=== PATIENT | female | born 1935 | race Caucasian/White ===

== ENCOUNTER 2017-08-18 13:51 | Emergency (ER) | payer MEDICARE, MEDICAID | END 2017-08-18 14:30 | disposition home or self-care (01) | LOC: ERS 13:51 | DX: K64.8 Other hemorrhoids (principal); E78.5 Hyperlipidemia, unspecified; I25.2 Old myocardial infarction; I10 Essential (primary) hypertension; Z79.899 Other long term (current) drug therapy; Z79.82 Long term (current) use of aspirin | CPT/HCPCS: 99282 ==

== ENCOUNTER 2017-10-09 13:33 | Emergency (ER) | payer MEDICARE, MEDICAID ==
[2017-10-09] MEDS ORDERED: Acetaminophen 500 MG TAB ONE (14:26)
--- NOTE | 2017-10-09 16:02 | RAD ---
RIGHT HUMERUS TWO VIEWS: History: Fall. Comparison: None. FINDINGS: There is a fracture of the right humeral neck with one-half shaft width anterior displacement. Fractu re extends into the greater tuberosity. IMPRESSION: Fracture of the right humeral neck with anterior displacement greater than 1 cm. Fracture extends int o the greater tuberosity. POS: [facility]
== END 2017-10-09 14:41 | disposition home or self-care (01) ==
LOC: SCSER 13:33
DX: S42.301A Unspecified fracture of shaft of humerus, right arm, initial encounter for closed fracture (principal); E78.5 Hyperlipidemia, unspecified; I25.2 Old myocardial infarction; I10 Essential (primary) hypertension; W19.XXXA Unspecified fall, initial encounter; Y93.01 Activity, walking, marching and hiking

== ENCOUNTER 2017-11-09 14:30 | Observation (INO) | payer MEDICARE, MEDICAID ==
[2017-11-09 15:48] LABS: #Eosinphils 0.1 thou/uL (0.0-0.7); #Lymphocytes 1.1 thou/uL (1.20-3.40); #Monocytes 0.5 thou/uL (0.11-0.59); #Neutrophils 3.6 thou/uL (1.40-6.50); %Basophils 0.4 % (0.0-1.0); %Eosinophils 1.9 % (0.0-10.0); %Lymphocytes 19.8 % (21.0-51.0); %Monocytes 9.6 % (0.0-10.0); %Neutrophils 68.2 % (42.0-75.0); Hemoglobin 8.5 g/dL (12.0-16.0); Mean Corpuscular Hemoglobin 27.8 pg (27.0-31.0); Mean Corpuscular Volume 87.1 fl (81.0-99.0); Mean Platelet Volume 6.8 fL (7.4-10.4); Platelet Count 232 thou/uL (130-400); RBC Distribution Width 17.4 % (11.5-14.5); Red Blood Cell (RBC) Count 3.05 mill/uL (4.20-5.40); White Blood Cell (WBC) Count 5.3 thou/uL (4.8-10.8)
[2017-11-09 16:01] LABS: ALT (SGPT) 10 U/L (8-55); AST (SGOT) 23 U/L (5-34); Alkaline Phosphatase 117 U/L (40-150); Anion Gap 13 mmol/L (10-20); BUN (Urea Nitrogen) 37 mg/dL (9.8-20.1); Bilirubin, Total 0.5 mg/dL (0.2-1.2); CK (CPK) 87 U/L (29-168); Calc. Creatinine Clearance 0 mL/min (70-130); Calcium 8.2 mg/dL (7.8-10.44); Carbon Dioxide 23 mmol/L (23-31); Chloride 103 mmol/L (98-107); Estimated GFR-MDRD 38; Globulin 3.5 g/dL (2.4-3.5); Glucose 114 mg/dL (83-110); Magnesium 2.2 mg/dL (1.6-2.6); Potassium 3.8 mmol/L (3.5-5.1); Protein, Total 6.5 g/dL (6.0-8.3); Sodium 135 mmol/L (136-145)
[2017-11-09 16:05] LABS: CKMB 1.2 ng/mL (0-6.6); Troponin I 0.011 ng/mL (< 0.028)
--- NOTE | 2017-11-09 16:24 | RAD ---
PORTABLE CHEST ONE VIEW: Date: 11-09-17 Time: 3:49 p.m. History: Pre-operative evaluation. FINDINGS: Comparison is made with exam of 10-19-15. The heart is enlarged. Left sided pacemaker device remains in place. The aorta is tortuous. The lungs are expanded without confluent areas of consolidation, pneumothoraces, madai pulmonary edema or pleu ral effusions. There is fracture of the right proximal humerus. IMPRESSION: 1. Cardiomegaly. 2. Right humeral fracture. POS: [facility]
[2017-11-09 16:33] LABS: Bilirubin Negative (Negative); Blood, Urine Negative (Negative); Clarity CLOUDY (Clear); Glucose, Urine (Dipstick) Negative (Negative); Leukocyte Trace (Negative); Nitrite Negative (Negative); Protein, Urine (Dipstick) Negative (Neg-Trace); Specific Gravity, Urine 1.015 (1.002-1.036); pH, Urine 5.5 (5.0-9.0)
[2017-11-09 16:35] LABS: Bacteria/HPF 4+ HPF (None Seen); Squamous Epithelial 0-3 HPF (0-3); WBC/HPF 0-3 HPF (0-3)
[2017-11-09 16:37] LABS: Pathc Cast-AUWi Flag 3.48 (0-2.49); RBC/HPF 0-3 HPF (0-3); Yeast-AUWi Flag 629.2 (0-25.0)
[2017-11-09 16:45] LABS: Crystals/HPF None Seen HPF (Negative); Other Casts/LPF None Seen LPF (0-3 Hyaline); Oval Fat Bodies/HPF None Seen HPF (None Seen); Renal Epithelial None Seen HPF (0-3); Transitional Epithelial NONE SEEN HPF (0-3); Trichomonas/HPF None Seen HPF (None Seen); Yeast-All Forms 1+ HPF (None Seen)
[2017-11-09] MEDS ORDERED: cefTRIAXone\\ROCEPHIN 2 GM VIAL ONE (18:19)
--- NOTE | 2017-11-09 19:28 | PDOC.FPRHP ---
Addendum entered and electronically signed by José Miguel Bahena MD 11/09/17 21:33: I, José Miguel Bahena MD, have personally evaluated this patient and agree with the findings/plan as outlined below by the tax intern resident with the following additions/exceptions: 82 yo WF presents after being found to be severely hypotensive in her cardiologists office. Patient was there undergoing cardiac clearance prior to undergoing repair of a R humeral fracture, which occurred about a month ago in a fall. SBPs were noted to be in the 50's in Dr. Ya's office, so patient was sent to the ER. The patient was bolused a liter of fluids after arrival; however, when they tried to get her up and move her she became weak and was unable to stand. Only other complaint is some mild dysuria over the past few days. Denies any f/c, chest pain, SOB, n/v/d/, vision changes, lightheadedness, increased lower extremity swelling, or LOC. Family at bedside does report her being weak recently. VS: BP: 11/61 HR: 76 T: 98.5 SpO2: 97% RA RR: 21 Gen: thin, frail appearing elderly female, NAD, AAOx3 CV: irr irregular rhythm, no m/g/r Lungs: CTAB Abd: +BS, NT/ND Ext: no c/c/e, adequately perfused A/P: 82 yo F w/: 1) Hypotension, likely iatrogenic 2/2 excess anti-antihypertensive therapy v. dehydration(hyaline casts on UA): placing in observation to telemetry for monitoring overnight. BPs responding to fluids. BP medication adjustment. 2) Possible UTI: Received Rocephin in ER, transition to orals on discharge. 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 Pt recently broke her R. humerus a month ago. She was going in to Dr. Ya office today to get cleared for surgery. At the appointment she was found to have BP in the 50's. Was sent to ER where she was hypotensive. When they tried to get her up and move her she became weak and was unable to stand. Only other complaint is that patient has had some burning when urinating. Denies any chest pain, SOB. Denies any n/v/d/c. Denies any vision changes or lightheadness. Denies any LOC. Family at bedside does report her being weak. Denies any swelling in hands or legs. ED Course: Given 1 fluid bolus in ER and by end of discussion with her BP had come up to 110's/50's - Allergies/Adverse Reactions Allergies Allergy/AdvReac Type Severity Reaction Status Date / Time Penicillins Allergy Mild Rash Verified 11/09/17 20:14 - Home Medications Medication Instructions Recorded Confirmed Type Aspirin [Ecotrin Low Strength] 81 mg PO DAILY 02/15/14 11/09/17 History Atorvastatin Calcium [Lipitor] 80 mg PO HS 02/16/14 11/09/17 History Amlodipine Besylate [amLODIPine 10 mg PO DAILY 03/14/15 11/09/17 History Besylate] Carvedilol [Coreg] 20 mg PO BID 03/14/15 11/10/17 History Ezetimibe [Zetia] 10 mg PO HS 03/14/15 11/09/17 History Lisinopril/Hydrochlorothiazide 1 tablet PO DAILY 03/14/15 11/09/17 History [Lisinopril-Hctz 20-25 mg Tab] - History PMHx: HTN, HLD, chronic A.fib, DMII, Sick sinus syndrome s/p pacemaker PSHx: hysterectomy, bilateral hip surgeries FHx: Noncontributory Social: Smoked in way way past unknown length of time, no alcohol use, no illicit drug use - Review of Systems General: denies: fever/chills, weight/appetite/sleep changes, night sweats Eyes: denies: eye pain, vision changes ENT: denies: nasal congestion, rhinorrhea Respiratory: denies: cough, congestion, shortness of breath, exercise intolerance Cardiovascular: denies: chest pain, palpitation, edema, paroxysmal nocturnal dyspnea, orthopnea Gastrointestinal: denies: nausea, vomiting, diarrhea, constipation, abdominal pain Genitourinary: reports: dysuria, other (burning pain) Skin: denies: rashes, lesions, itching Musculoskeletal: reports: pain (In R. arm). denies: tenderness, stiffness, swelling Neurological: reports: weakness. denies: numbness, syncope, seizure Psychological: denies: anxiety, depression - Vital signs BP: [115/53] HR: [86] RR: [18] Tmax: [98.7] Pox: [100]% on RA WT: 48 kg - Physical Exam Constitutional: NAD, awake, alert and oriented, well developed HEENT: normocephalic and atraumatic, PERRLA, grossly normal vision, normal nasal mucosa, MMM Neck: supple, no LAD, no thyromegaly Chest: no-tender to palpation, no lesions Heart: RRR, normal S1/S2, no murmurs/rubs/gallops, pulses present Lungs: CTAB, no respiratory distress, no rales/rhonchi, no wheezing Abdomen: soft, bowel sounds present, no hernias -Abdomen: mildly distended Musculoskeletal: normal structure, ROM grossly normal Neurological: no focal deficit, normal sensation Skin: no rash/lesions, good turgor, capillary refill <2 seconds Heme/Lymphatic: no unusual bruising or bleeding, no purpura, no petechia Psychiatric: normal mood and affect, good judgment and insight FMR H&P: Results - Labs Result Diagrams: 11/10/17 15:11 11/10/17 05:29 Lab results: WBC 5.3 thou/uL (4.8-10.8) 11/09/17 15:10 Hgb 8.5 g/dL (12.0-16.0) L 11/09/17 15:10 Hct 26.6 % (36.0-47.0) L 11/09/17 15:10 MCV 87.1 fl (81.0-99.0) 11/09/17 15:10 Plt Count 232 thou/uL (130-400) 11/09/17 15:10 Neutrophils % 68.2 % (42.0-75.0) 11/09/17 15:10 Sodium 135 mmol/L (136-145) L 11/09/17 15:10 Potassium 3.8 mmol/L (3.5-5.1) 11/09/17 15:10 Chloride 103 mmol/L (98-107) 11/09/17 15:10 Carbon Dioxide 23 mmol/L (23-31) 11/09/17 15:10 BUN 37 mg/dL (9.8-20.1) H 11/09/17 15:10 Creatinine 1.34 mg/dL (0.6-1.1) H 11/09/17 15:10 Glucose 114 mg/dL (83-110) H 11/09/17 15:10 Lactic Acid 2.2 mmol/L (0.5-2.2) 11/09/17 15:10 Calcium 8.2 mg/dL (7.8-10.44) 11/09/17 15:10 Total Bilirubin 0.5 mg/dL (0.2-1.2) 11/09/17 15:10 AST 23 U/L (5-34) 11/09/17 15:10 ALT 10 U/L (8-55) 11/09/17 15:10 Alkaline Phosphatase 117 U/L (40-150) 11/09/17 15:10 Creatine Kinase 87 U/L (29-168) 11/09/17 15:10 CK-MB (CK-2) 1.2 ng/mL (0-6.6) 11/09/17 15:10 B-Natriuretic Peptide 113.2 pg/mL (0-100) H 11/09/17 15:10 Serum Total Protein 6.5 g/dL (6.0-8.3) 11/09/17 15:10 Albumin 3.0 g/dL (3.4-4.8) L 11/09/17 15:10 Urine Ketones Negative mg/dL (Negative) 11/09/17 16:27 Urine Blood Negative (Negative) 11/09/17 16:27 Urine Nitrite Negative (Negative) 11/09/17 16:27 Ur Leukocyte Esterase Trace (Negative) H 11/09/17 16:27 Urine RBC 0-3 HPF (0-3) 11/09/17 16:27 Urine WBC 0-3 HPF (0-3) 11/09/17 16:27 Ur Squamous Epith Cells 0-3 HPF (0-3) 11/09/17 16:27 Urine Bacteria 4+ HPF (None Seen) H 11/09/17 16:27 - EKG Interpretation EKG: a. fib, paced - Radiology Interpretation Chest x-ray Status: image reviewed by me (negative), report reviewed by me FMR H&P: A/P - Problem List (1) Hypotension due to medication Current Visit: Yes Status: Acute (2) Mild dehydration Current Visit: Yes Status: Acute Code(s): E86.0 - DEHYDRATION (3) UTI (urinary tract infection) Current Visit: Yes Status: Acute (4) HTN (hypertension) Current Visit: Yes Status: Acute Code(s): I10 - ESSENTIAL (PRIMARY) HYPERTENSION Qualifiers: Hypertension type: essential hypertension Qualified Code(s): I10 - Essential (primary) hypertension (5) HLD (hyperlipidemia) Current Visit: Yes Status: Acute Code(s): E78.5 - HYPERLIPIDEMIA, UNSPECIFIED Qualifiers: Hyperlipidemia type: other hyperlipidemia Qualified Code(s): E78.4 - Other hyperlipidemia (6) A-fib Current Visit: Yes Status: Acute Code(s): I48.91 - UNSPECIFIED ATRIAL FIBRILLATION Qualifiers: Atrial fibrillation type: unspecified Qualified Code(s): I48.91 - Unspecified atrial fibrillation (7) Diabetes Current Visit: Yes Status: Acute Code(s): E11.9 - TYPE 2 DIABETES MELLITUS WITHOUT COMPLICATIONS Qualifiers: Diabetes mellitus type: type 2 Diabetes mellitus custodial insulin use: without manager intermediate use Diabetes mellitus complication status: with unspecified complications Qualified Code(s): E11.8 - Type 2 diabetes mellitus with unspecified complications (8) Vitamin B12 deficiency (dietary) anemia Current Visit: No Status: Acute Code(s): D51.8 - OTHER VITAMIN B12 DEFICIENCY ANEMIAS (9) Right humeral fracture Current Visit: Yes Status: Acute Code(s): S42.301A - UNSP FRACTURE OF SHAFT OF HUMERUS, RIGHT ARM, INIT - Plan Symptomatic Hypotension 2/2 iatrogenic vs mild dehdration -BP responded well to 1 L bolus in ER. Will give another Bolus. Will continue fluids at 100 mls/hr -Holding all hypertensive medications at this time. Will see where blood pressure goes to and restart meds as needed -Possibly related to UTI as well. See plan below UTI -UA shows 4+ bacteria, 1+ yeast and Trace LE. Complaining of burning pain when urinating -urine cx pending -Rocephin for abx coverage. Diflucan given for yeast infection -Await sensitivities and adjust medications as needed HTN -Holding all hypertensive medications due to problem above HLD -continue home meds Chronic A.fib w/ pacemaker -Tele obs monitoring -continue home meds DMII -Diet controlled, not on any meds at this time -Accuchecks BID. Mild SSI R. Humerus fx -Recently being worked up outpatient. Plan for surgery once cleared Macrocytic Anemia -Hgb 8.5 a little lower than baseline from previous visits. -Follow with Daily CBC. continue home meds - FMR H&P: Upper Level - Plan Date/Time: 11/09/171927 I, [], have evaluated this patient and agree with findings/plan as outlined by tax intern resident. Pertinent changes/additions are listed here. Attending Addendum - Attending Addendum Date/Time: 11/10/17 [id number] I personally evaluated the patient and discussed the management with Dr. Moran. I agree with the History, Examination, Assessment and Plan documented above with any addition or exceptions noted below.
[2017-11-09 19:45] LABS: Lactic Acid 0.8 mmol/L (0.5-2.2)
[2017-11-09] MEDS ORDERED: Ondansetron ODT 4 MG TAB SL PRN (19:46)
[2017-11-09] MEDS ORDERED: Sodium Chloride 0.9% 1,000 ML IV SCH (19:46)
[2017-11-09] MEDS ORDERED: Ondansetron HCl/PF 4 MG/2 ML Vial IVP PRN ×2 (19:46→19:54)
[2017-11-09] MEDS ORDERED: Acetaminophen 650 MG Suppository PR PRN (19:54)
[2017-11-09] MEDS ORDERED: Ondansetron ODT 4 MG TAB PO PRN (19:54)
[2017-11-09] MEDS ORDERED: Acetaminophen 325 MG TAB PO PRN (19:54)
[2017-11-09] MEDS ORDERED: cefTRIAXone\\ROCEPHIN 1 GM in Sodium Chloride 0.9% 100 ML IVPB SCH (19:54)
[2017-11-09] MEDS ORDERED: Calcium Carbonate 500 MG ChewTAB PO PRN (19:54)
[2017-11-09] MEDS ORDERED: cefTRIAXone\\ROCEPHIN 1 GM, Syringe 0.4 ML in Sterile Water 9.6 ML SLOW IVP SCH (21:00)
[2017-11-09] MEDS ORDERED: Dextrose 5% in Water 1,000 ML IV PRN (21:02)
[2017-11-09] MEDS ORDERED: Dextrose 50% Abboject 50 ML SYRINGE SLOW IVP PRN (21:02)
[2017-11-09] MEDS ORDERED: HumaLOG 300 UNITS/3 ML VIAL SC PRN (21:02)
[2017-11-09] MEDS: Atorvastatin Calcium 40 MG TAB PO SCH (22:15)
[2017-11-09] MEDS: Sodium Chloride 0.9% 1,000 ML IV SCH (22:15)
[2017-11-10 05:57] LABS: #Eosinphils 0.1 thou/uL (0.0-0.7); #Lymphocytes 1.2 thou/uL (1.20-3.40); #Monocytes 0.5 thou/uL (0.11-0.59); #Neutrophils 4.3 thou/uL (1.40-6.50); %Basophils 0.1 % (0.0-1.0); %Eosinophils 2.1 % (0.0-10.0); %Lymphocytes 19.9 % (21.0-51.0); %Monocytes 7.9 % (0.0-10.0); Hemoglobin 7.6 g/dL (12.0-16.0); Mean Corpuscular HGB CONC 32.1 g/dL (32.0-36.0); Mean Corpuscular Hemoglobin 27.9 pg (27.0-31.0); Mean Corpuscular Volume 86.8 fl (81.0-99.0); Mean Platelet Volume 6.6 fL (7.4-10.4); Platelet Count 199 thou/uL (130-400); RBC Distribution Width 17.4 % (11.5-14.5); Red Blood Cell (RBC) Count 2.72 mill/uL (4.20-5.40); White Blood Cell (WBC) Count 6.2 thou/uL (4.8-10.8)
[2017-11-10] MEDS: Sodium Chloride 0.9% 1,000 ML IV SCH (06:09)
[2017-11-10 06:10] LABS: Anion Gap 7 mmol/L (10-20); BUN (Urea Nitrogen) 31 mg/dL (9.8-20.1); Calc. Creatinine Clearance 34 mL/min (70-130); Calcium 7.8 mg/dL (7.8-10.44); Carbon Dioxide 23 mmol/L (23-31); Chloride 109 mmol/L (98-107); Estimated GFR-MDRD 57; Glucose 89 mg/dL (83-110); Potassium 3.1 mmol/L (3.5-5.1); Sodium 136 mmol/L (136-145)
[2017-11-10] MEDS ORDERED: Potassium Chloride 20 MEQ TAB PO SCH (06:15)
--- NOTE | 2017-11-10 08:42 | PDOC.FM ---
- Subjective Subjective: Patient reports that she is feeling much better. She is still feeling weak, but no lightheadedness or dizziness. She reports some dysuria, but states that it is improved from yesterday. She denies any abdominal pain, N/V. She denies melena, hematochezia. She does not remember ever having a colonoscopy, but she is unsure. She said she could have had one a long time ago and just not remembered. - Objective MAR Reviewed: Yes Vital Signs & Weight: Vital Signs (12 hours) Temp Pulse Resp BP Pulse Ox 11/10/17 08:00 98.6 F 84 18 132/62 97 11/10/17 07:51 98.6 F 84 16 132/62 97 Weight Weight 47.718 kg I&O: 11/09/17 11/10/17 11/11/17 06:59 06:59 06:59 Intake Total 1260 Balance 1260 Result Diagrams: 11/10/17 05:29 11/10/17 05:29 <Gregoria Miller - Last Filed: 11/10/17 08:40> - Objective Vital Signs & Weight: Vital Signs (12 hours) Temp Pulse Pulse Resp BP BP Pulse Ox 11/10/17 08:30 94 139/76 11/10/17 08:00 98.6 F 84 18 132/62 97 11/10/17 07:51 98.6 F 84 16 132/62 97 Weight Weight 47.718 kg I&O: 11/09/17 11/10/17 11/11/17 06:59 06:59 06:59 Intake Total 1260 Balance 1260 Result Diagrams: 11/10/17 05:29 11/10/17 05:29 <Carol Venegas - Last Filed: 11/10/17 10:50> Phys Exam - Physical Examination Constitutional: NAD frail appearing HEENT: moist MMs Respiratory: no wheezing, no rales, no rhonchi, clear to auscultation bilateral irregularly irregular, 3/6 systolic murmur Gastrointestinal: soft, no distention, positive bowel sounds mildly tender in suprapubic region Musculoskeletal: no edema, pulses present R arm in sling Neurological: non-focal, moves all 4 limbs Psychiatric: normal affect, A&O x 3 Skin: normal turgor, cap refill <2 seconds <Gregoria Miller - Last Filed: 11/10/17 08:40> Dx/Plan (1) Hypotension due to medication Status: Acute (2) Mild dehydration Code(s): E86.0 - DEHYDRATION Status: Acute (3) UTI (urinary tract infection) Status: Acute (4) Right humeral fracture Code(s): S42.301A - UNSP FRACTURE OF SHAFT OF HUMERUS, RIGHT ARM, INIT Status : Acute (5) Normocytic anemia Code(s): D64.9 - ANEMIA, UNSPECIFIED Status: Acute (6) A-fib Code(s): I48.91 - UNSPECIFIED ATRIAL FIBRILLATION Status: Acute QualifierTitle: Atrial fibrillation type: unspecified Qualified Code(s): I48.91 - Unspecified atrial fibrillation (7) Diabetes Code(s): E11.9 - TYPE 2 DIABETES MELLITUS WITHOUT COMPLICATIONS Status: Acute QualifierTitle: Diabetes mellitus type: type 2 Diabetes mellitus detention insulin use: without exterminator termite use Diabetes mellitus complication status : with unspecified complications Qualified Code(s): E11.8 - Type 2 diabetes mellitus with unspecified complications (8) HLD (hyperlipidemia) Code(s): E78.5 - HYPERLIPIDEMIA, UNSPECIFIED Status: Acute QualifierTitle: Hyperlipidemia type: other hyperlipidemia Qualified Code( s): E78.4 - Other hyperlipidemia (9) HTN (hypertension) Code(s): I10 - ESSENTIAL (PRIMARY) HYPERTENSION Status: Acute QualifierTitle: Hypertension type: essential hypertension Qualified Code( s): I10 - Essential (primary) hypertension - Plan Plan: Symptomatic Hypotension 2/2 iatrogenic vs mild dehdration The patient had SBP reported in the 50's in a clinic on 11/09 and then on presentation in the ED had BP of 63/36. Her BP responded to 2L NS boluses and has been around 110s/60s since then. -Will continue fluids at 100 mls/hr -Holding all hypertensive medications at this time. Will see where blood pressure goes to and restart meds as needed -Possibly related to UTI as well. See plan below -Pt also anemic initially to 8.5 and is 7.6 today. Her baseline is around 10. No source of bleeding found, but has a h/o JODY. Will check FOBT and iron studies. -Trend H/H and transfuse if < 7 UTI UA shows 4+ bacteria, 1+ yeast and Trace LE. Complaining of burning pain when urinating with some suprapubic tenderness on exam. -urine cx pending -Rocephin day 2, will transition to PO once cultures return -Diflucan given for yeast infection -Await sensitivities and adjust medications as needed Normocytic Anemia -Hgb 8.5 initially and trended down to 7.6 this AM. Baseline around 10. Has h/o JODY and reports that she has been on iron in the past, but isn't currently. She has had to have a blood transfusion once before after a hip fracture. She is unsure if she has ever had a colonoscopy. -Follow with Daily CBC -Check iron studies -FOBT HTN Patient on Carvedilol, Lisinopril-HCTZ, and Amlodipine at home. -Holding all hypertensive medications due to problem above HLD -continue home meds Chronic A.fib w/ pacemaker -Monitor on tele -Continue aspirin DMII -Diet controlled, not on any meds at this time -Accuchecks BID. Mild SSI R. Humerus fx Recently being worked up outpatient. Plan for surgery once cleared by cardiology -Continue sling -f/u with cardiology for clearance once d/c'd <Gregoria Miller - Last Filed: 11/10/17 08:40> Attending Addendum - Attending Addendum Date/Time: 11/10/17 1049 I personally evaluated the patient and discussed the management with Dr. Miller. I agree with the History, Examination, Assessment and Plan documented above with any addition or exceptions noted below. The patient's hypotension has resolved. BP meds are being held. On antibiotics for UTI. WAiting on culture. <Carol Venegas - Last Filed: 11/10/17 10:50>
[2017-11-10] MEDS: Enoxaparin Sodium 30 MG/0.3 ML SYRINGE SC SCH (08:59)
[2017-11-10] MEDS ORDERED: Fluconazole 100 MG TAB PO SCH (09:00)
[2017-11-10] MEDS ORDERED: Enoxaparin Sodium 40 MG/0.4 ML SYRINGE SC SCH (09:00)
[2017-11-10] MEDS: Cyanocobalamin (Vitamin B-12) 1,000 MCG TAB PO SCH (09:00)
[2017-11-10] MEDS: Aspirin 81 mg Enteric Coated Tablet PO SCH (09:01)
[2017-11-10] MEDS: Ezetimibe 10 MG TAB PO SCH (09:01)
[2017-11-10 15:25] LABS: Hemoglobin 8.3 g/dL (12.0-16.0)
[2017-11-10] MEDS ORDERED: cefTRIAXone\\ROCEPHIN 1 GM, Syringe 0.4 ML in Sterile Water 9.6 ML SLOW IVP SCH (19:00)
[2017-11-10] MEDS: Atorvastatin Calcium 40 MG TAB PO SCH (20:41)
[2017-11-11 07:23] LABS: #Eosinphils 0.2 thou/uL (0.0-0.7); #Lymphocytes 1.5 thou/uL (1.20-3.40); #Monocytes 0.5 thou/uL (0.11-0.59); #Neutrophils 2.5 thou/uL (1.40-6.50); %Basophils 0.8 % (0.0-1.0); %Eosinophils 4.9 % (0.0-10.0); %Lymphocytes 32.5 % (21.0-51.0); %Monocytes 9.4 % (0.0-10.0); %Neutrophils 52.4 % (42.0-75.0); Hemoglobin 8.3 g/dL (12.0-16.0); Mean Corpuscular HGB CONC 31.2 g/dL (32.0-36.0); Mean Corpuscular Hemoglobin 27.4 pg (27.0-31.0); Mean Platelet Volume 6.5 fL (7.4-10.4); Platelet Count 222 thou/uL (130-400); RBC Distribution Width 17.2 % (11.5-14.5); Red Blood Cell (RBC) Count 3.03 mill/uL (4.20-5.40); White Blood Cell (WBC) Count 4.7 thou/uL (4.8-10.8)
[2017-11-11 07:24] VITALS: BMI 15.7
[2017-11-11 07:44] LABS: Anion Gap 11 mmol/L (10-20); BUN (Urea Nitrogen) 19 mg/dL (9.8-20.1); Calc. Creatinine Clearance 38 mL/min (70-130); Calcium 8.5 mg/dL (7.8-10.44); Carbon Dioxide 22 mmol/L (23-31); Chloride 107 mmol/L (98-107); Estimated GFR-MDRD 68; Glucose 76 mg/dL (83-110); Potassium 3.7 mmol/L (3.5-5.1); Sodium 136 mmol/L (136-145)
[2017-11-11] MEDS: Ezetimibe 10 MG TAB PO SCH (08:50)
[2017-11-11] MEDS: Enoxaparin Sodium 30 MG/0.3 ML SYRINGE SC SCH (08:50)
[2017-11-11] MEDS: Aspirin 81 mg Enteric Coated Tablet PO SCH (08:50)
[2017-11-11] MEDS: Cyanocobalamin (Vitamin B-12) 1,000 MCG TAB PO SCH (08:50)
--- NOTE | 2017-11-11 09:00 | PDOC.FM ---
- Subjective Subjective: Patient doing well this AM. She says she got up to walk with the walking program yesterday and had no lightheadedness or dizziness. She denies any CP, SOB. She has some mild dysuria. - Objective MAR Reviewed: Yes Vital Signs & Weight: Vital Signs (12 hours) Temp Pulse Resp BP Pulse Ox 11/11/17 08:12 98.1 F 77 21 H 155/73 H 92 L 11/11/17 04:41 97.9 F 89 24 H 131/72 97 11/11/17 00:49 98.8 F 90 15 148/64 H 93 L Weight Admit Weight 47.718 kg Weight 45.813 kg I&O: 11/10/17 11/11/17 11/12/17 06:59 06:59 06:59 Intake Total 1410 1280 Balance 1410 1280 Result Diagrams: 11/11/17 07:01 11/11/17 07:01 <Gregoria Miller - Last Filed: 11/11/17 08:57> - Objective Vital Signs & Weight: Vital Signs (12 hours) Temp Pulse Resp BP Pulse Ox 11/11/17 12:00 97.8 F 79 18 145/70 H 94 L 11/11/17 08:12 98.1 F 77 21 H 155/73 H 92 L 11/11/17 08:00 98.1 F 77 21 H Weight Admit Weight 47.718 kg Weight 45.813 kg I&O: 11/10/17 11/11/17 11/12/17 06:59 06:59 06:59 Intake Total 1410 1280 400 Balance 1410 1280 400 Result Diagrams: 11/11/17 07:01 11/11/17 07:01 <Carol Venegas - Last Filed: 11/11/17 17:12> Phys Exam - Physical Examination Constitutional: NAD HEENT: moist MMs Respiratory: no wheezing, no rales, no rhonchi, clear to auscultation bilateral Cardiovascular: RRR, no rub 3/6 systolic murmur Gastrointestinal: soft, no distention, positive bowel sounds mildly tender in suprapubic region Musculoskeletal: no edema, pulses present Neurological: non-focal, moves all 4 limbs Psychiatric: normal affect Skin: normal turgor, cap refill <2 seconds <Gregoria Miller - Last Filed: 11/11/17 08:57> Dx/Plan (1) Hypotension due to medication Status: Acute (2) Mild dehydration Code(s): E86.0 - DEHYDRATION Status: Acute (3) UTI (urinary tract infection) Status: Acute (4) Right humeral fracture Code(s): S42.301A - UNSP FRACTURE OF SHAFT OF HUMERUS, RIGHT ARM, INIT Status : Acute (5) Normocytic anemia Code(s): D64.9 - ANEMIA, UNSPECIFIED Status: Acute (6) A-fib Code(s): I48.91 - UNSPECIFIED ATRIAL FIBRILLATION Status: Acute QualifierTitle: Atrial fibrillation type: unspecified Qualified Code(s): I48.91 - Unspecified atrial fibrillation (7) Diabetes Code(s): E11.9 - TYPE 2 DIABETES MELLITUS WITHOUT COMPLICATIONS Status: Acute QualifierTitle: Diabetes mellitus type: type 2 Diabetes mellitus financial consultant insulin use: without correction use Diabetes mellitus complication status : with unspecified complications Qualified Code(s): E11.8 - Type 2 diabetes mellitus with unspecified complications (8) HLD (hyperlipidemia) Code(s): E78.5 - HYPERLIPIDEMIA, UNSPECIFIED Status: Acute QualifierTitle: Hyperlipidemia type: other hyperlipidemia Qualified Code( s): E78.4 - Other hyperlipidemia (9) HTN (hypertension) Code(s): I10 - ESSENTIAL (PRIMARY) HYPERTENSION Status: Acute QualifierTitle: Hypertension type: essential hypertension Qualified Code( s): I10 - Essential (primary) hypertension - Plan Plan: Symptomatic Hypotension 2/2 iatrogenic vs mild dehdration The patient had SBP reported in the 50's in a clinic on 11/09 and then on presentation in the ED had BP of 63/36. Her BP responded to 2L NS boluses. This is possibly related to UTI. Her BP has been 131/72-174/79 in past 24 horus -d/c fluids at this time -Holding all hypertensive medications at this time. -Pt also anemic at 8.3 today. Her baseline is around 10. No source of bleeding found, but has a h/o JODY. Will check FOBT -Trend H/H and transfuse if < 7 UTI UA shows 4+ bacteria, 1+ yeast and Trace LE. Complaining of burning pain when urinating with some suprapubic tenderness on exam. UCx no growth @ 24 hours -urine cx final result pending -Rocephin day 3, will transition to PO once cultures return -Diflucan x1 given for yeast infection Normocytic Anemia -Hgb 8.5 initially. Baseline around 10. Has h/o JODY and reports that she has been on iron in the past, but isn't currently. She has had to have a blood transfusion once before after a hip fracture. She is unsure if she has ever had a colonoscopy. -Follow with Daily CBC -FOBT still pending HTN Patient on Carvedilol, Lisinopril-HCTZ, and Amlodipine at home. -Holding all hypertensive medications due to problem above HLD -continue home meds Chronic A.fib w/ pacemaker -Monitor on tele -Continue aspirin DMII -Diet controlled, not on any meds at this time -Accuchecks BID. Mild SSI R. Humerus fx Recently being worked up outpatient. Plan for surgery once cleared by cardiology -Continue sling -f/u with cardiology for clearance once d/c'd <Gregoria Miller - Last Filed: 11/11/17 08:57> Attending Addendum - Attending Addendum Date/Time: 11/11/17 1711 I personally evaluated the patient and discussed the management with Dr. Miller. I agree with the History, Examination, Assessment and Plan documented above with any addition or exceptions noted below. The patient is feeling better. Blood pressure has risen. Will restart carvedilol at 12.5 mg bid. Hold other bp meds until she f/u with PCP. Ok to discharge. <Carol Venegas - Last Filed: 11/11/17 17:12>
[2017-11-11 13:28] VITALS: BP 145/70; TEMP 97.8
--- NOTE | 2017-11-14 12:52 | DIS-2 ---
DATE OF ADMISSION: 11/09/2017 DATE OF DISCHARGE: 11/11/2017 ADMITTING ATTENDING: Anirudh Lopez M.D. DISCHARGE ATTENDING: Carol Venegas M.D. ADMITTING RESIDENT: Arden Moran M.D. DISCHARGE RESIDENT: Gregoria Miller M.D. CONSULTATIONS: None. PROCEDURES: None. PRIMARY DIAGNOSES: 1. Symptomatic hypotension. 2. Mild dehydration. 3. Urinary tract infection. 4. Normocytic anemia. SECONDARY DIAGNOSES: 1. Hypertension. 2. Hyperlipidemia. 3. Chronic atrial fibrillation with pacemaker. 4. Diabetes type 2. 5. Right humerus fracture. DISCHARGE MEDICATIONS: 1. Aspirin 81 mg p.o. daily. 2. Atorvastatin 80 mg p.o. at bedtime. 3. Carvedilol 12.5 mg p.o. b.i.d. 4. Vitamin B12 1000 mcg p.o. daily. 5. Zetia 10 mg p.o. at bedtime. 6. Macrobid 100 mg p.o. b.i.d. for 3 days. DISCONTINUED MEDICATIONS: 1. Amlodipine 10 mg p.o. daily. 2. Carvedilol 20 mg p.o. b.i.d. 3. Lisinopril/hydrochlorothiazide 20/25 mg 1 tablet p.o. daily. HISTORY OF PRESENT ILLNESS AND HOSPITAL COURSE: This is an 82-year-old female who came into the ER f nara Ya's office due to symptomatic hypotension. She had been there to get cleared for surg irena due to a right humerus fracture about a month ago. In his office, she was found to have systolic blood pressures in the 50s. Upon arrival in the ER, her blood pressure was 63/36. Patient received 2 fluid boluses and her blood pressure improved to the teens systolic. The patient's antihypertensi ve medicines were held and her blood pressure continued to improve to the 130s/70s. The patient was found to have a UA that showed 4+ bacteria, 1+ yeast and trace leukocyte esterase. She was also comp laining of some burning pain with urination and some suprapubic tenderness. She was given one dose o f Diflucan for the yeast infection and was given 3 days of Rocephin in the hospital and upon discharg e was transitioned to Macrobid as the urine culture did not grow anything. The Macrobid was continue d for 3 more days. The patient was also found to be anemic slightly below her baseline. Her baselin e is around 10. Her hemoglobin on admission was 8.5. This could be related to her humerus fracture. She does have a history of iron deficiency anemia, but was not currently on iron. The patient has had to have a blood transfusion in the past when she had her hip fracture done. She is unsure if she has ever had a colonoscopy. It was recommended for her to potentially get worked up for this by her PCP and potentially get a colonoscopy outpatient. The patient's blood pressures improved and were a t her baseline level. She was discharged home on carvedilol 12.5 mg b.i.d. as the patient does have a history of chronic atrial fibrillation. The rest of her blood pressure medicines were held at this time for her to follow up with her primary care doctor to titrate as needed. The patient should fol low up with Cardiology to get cleared for surgery for her right humerus fracture. The patient was as ymptomatic at the time of discharge. DISPOSITION: Stable. DISCHARGE INSTRUCTIONS: 1. Location: Home. 2. Diet: Heart healthy and diabetic. 3. Activity: As tolerated. 4. Follow up with Dr. Aleman within [address] Ya within 1-2 weeks.
== END 2017-11-11 15:48 | disposition home or self-care (01) ==
LOC: ERS 14:30 → 2NO 18:32
PROVIDERS: ADMIT Family Medicine; ATTEND Family Medicine
DX: I95.9 Hypotension, unspecified (principal); E86.0 Dehydration; N39.0 Urinary tract infection, site not specified; D64.9 Anemia, unspecified; I10 Essential (primary) hypertension; E78.5 Hyperlipidemia, unspecified; I48.2 Chronic atrial fibrillation; E11.9 Type 2 diabetes mellitus without complications; S42.301A Unspecified fracture of shaft of humerus, right arm, initial encounter for closed fracture; I25.10 Atherosclerotic heart disease of native coronary artery without angina pectoris; I42.9 Cardiomyopathy, unspecified; Z88.0 Allergy status to penicillin; Z95.0 Presence of cardiac pacemaker; Z98.890 Other specified postprocedural states; Z87.891 Personal history of nicotine dependence; B96.89 Other specified bacterial agents as the cause of diseases classified elsewhere
CPT/HCPCS: 51701; 71045; 80048 ×2; 80053; 82550; 82553; 82728; 82962 ×2; 83540; 83550; 83605; 83735 ×2; 83880; 84484; 85014; 85018; 85025 ×3; 87086; 93005; 96361 ×3; 96365; 96372 ×2; 96376; 97139 ×4; 99285; G0378; G8987; G8988; 36415; 36416; 81003; 81015; A4216; G8996-GN-CL; G8997-GN-CK; J0696; J1650

== ENCOUNTER 2018-02-05 00:33 | Emergency (ER) | payer MEDICARE, MEDICAID ==
[2018-02-05 00:46] LABS: Base Excess-Venous -11.8 mmol/L (0 (+/- 2.5)); Bicarbonate (HCO3v) 16.9 mmol/L (1.0-85.0); Calcium, Ionized 1.02 mmol/L (1.12-1.32); O2 Tension (PvO2) 60.2 mmHg (35.0-45.0); Potassium 6.5 mmol/L (3.4-4.7); T. Carbon Dioxide 18.6 mmol/L (1.0-85.0); pH (Venous) 7.104 (7.35-7.45); vO2 Saturation-calc 80.2 % (94-98)
[2018-02-05] MEDS ORDERED: Sodium Bicarb 50 MEQ/50 ML Abboject 8.4% SYRINGE ONE (01:00)
[2018-02-05] MEDS ORDERED: Calcium Chloride 1 GM/10 ML Abboject SYRINGE ONE (01:00)
[2018-02-05] MEDS ORDERED: EPINEPHrine 1 MG/10 ML Abboject SYRINGE ONE (01:00)
[2018-02-08] MEDS ORDERED: Calcium Chloride 1 GM/10 ML Abboject SYRINGE ONE (13:46)
[2018-02-08] MEDS ORDERED: EPINEPHrine 1 MG/10 ML Abboject SYRINGE ONE (13:46)
== END 2018-02-05 06:43 | disposition expired ==
LOC: ERS 00:33
DX: I46.9 Cardiac arrest, cause unspecified (principal); E11.9 Type 2 diabetes mellitus without complications; E78.5 Hyperlipidemia, unspecified; I25.2 Old myocardial infarction; F41.9 Anxiety disorder, unspecified; F32.9 Major depressive disorder, single episode, unspecified
CPT/HCPCS: 36416; 82330; 82435; 82803; 84132; 84295; 85014; 96374; 96375; J0171